=== PATIENT | female | born 1985 | race Caucasian/White ===

== ENCOUNTER 2017-04-22 08:39 | Emergency (ER) | payer SELFPAY ==
[~2017-04-22] VITALS: Ht 165.1 cm; Wt 78.9 kg
[2017-04-22 08:42] VITALS: BP 144/88
--- NOTE | 2017-04-22 08:56 | NUR ---
Patient ambulated to bed 2 after providing a urine specimen. RN evaluating patient at bedside.
--- NOTE | 2017-04-22 08:58 | NUR ---
ASSUMED PATIENT CARE, CONCUR WITH TRIAGE ASSESSMENT. SEEN AND EVALUATED BY PROVIDER, MSE COMPLETED, ORIENTED TO ER COURSE AND PLAN OF CARE. SAFETY PRECAUTIONS ENFORCED.
[2017-04-22] MEDS ORDERED: KETOROLAC 30 MG/ML VIAL IM ONE (09:00)
[2017-04-22] MEDS ORDERED: DICYCLOMINE HCL LIQUID 20 MG, ALUMINUM HYD/MAG/SIMETHICONE 30 ML, LIDOCAINE VISCOUS 2% ... PO ONE ×3 (09:00)
[2017-04-22 10:21] LABS: ANION GAP 12.1 (8-16); CARBON DIOXIDE 23.7 mmol/L (21-32); CREATININE 0.5 mg/dL (0.6-1.3); POTASSIUM 3.8 mmol/L (3.5-5.1)
[2017-04-22 10:26] LABS: ALBUMIN 3.3 g/dL (3.4-5.0); TOTAL BILIRUBIN 0.3 mg/dL (0.0-1.0)
[2017-04-22 10:34] VITALS: BP 137/88
--- NOTE | 2017-04-22 10:35 | NUR ---
DISPO AND MEDICAL DECISION MAKING, DC HOME WITH INSTRUCTIONS AND PRESCRIPTIONS. PATIENT VERBALIZING IMPROVEMENT FROM SYMPTOMS, VSWNL, NO DISTRESS.
== END 2017-04-22 10:35 | disposition home or self-care (01) ==
LOC: MED 08:39
DX: K80.20 Calculus of gallbladder without cholecystitis without obstruction (principal)
CPT/HCPCS: 36415; 80053; 81025; 83690; 96372; 99284; J1885